=== PATIENT | male | born 1975 | race African-American/Black ===

== ENCOUNTER 2016-04-14 14:31 | Emergency (ER) | payer OTHER ==
--- NOTE | 2016-04-14 15:29 | PROVIDER DOCUMENTATION ---
HPI-General Adult - General Source: patient - History of Present Illness -Gen Adult Nature of Presenting Problems: Pt is a 40 yom who came to the ED with a cc of allergic reaction. Pt reports he changed to a new medication last week, lisinopril. Pt reports his lips started swelling this morning. Location of Pain/Injury: reports: mouth (lips) Pain Radiation: reports: no radiation Quality of Pain: reports: none Onset/Duration: reports: this morning Timing: reports: still present Context/Activities at Onset: reports: other (recent medication change) Modifying Factors: improves with: nothing Associated Symptoms: reports: denies symptoms Similar Symptoms Previously?: No Recently seen or treated by another doctor?: No <Albina John - Last Filed: 04/14/16 15:44> <Osiel Serrano I - Last Filed: 04/14/16 15:49> - General Chief Complaint: Allergic Reaction Stated Complaint: POSS REACTION TO RX Time Seen by Provider: 04/14/16 15:05 Allergies/Adverse Reactions: Patient Allergies Allergy/AdvReac Type Severity Reaction Status Date / Time fluoxetine HCl * Allergy Unknown Unknown Verified 04/14/16 15:27 [From Prozac] methylphenidate HCl * Allergy Unknown Unknown Verified 04/14/16 15:27 [From Ritalin] verapamil [Verapamil] Allergy Unknown Unknown Verified 04/14/16 15:27 Home Medications: Home Medication List Medication Instructions Recorded Confirmed Last Taken Type Amlodipine [Norvasc] 10 mg PO DAILY #0 tablet 10/02/14 04/14/16 04/14/16 Rx Quetiapine [Seroquel] 200 mg PO QHS #0 tablet 10/02/14 04/14/16 04/13/16 Rx Sertraline [Zoloft] 200 mg PO QAM #0 tablet 10/02/14 04/14/16 04/14/16 Rx Ibuprofen 800 mg PO Q6-8H PRN PRN #20 tablet 11/23/15 04/14/16 Unknown Rx Clonidine [Catapres] 0.2 mg PO BID 04/14/16 04/14/16 04/14/16 History Diphenhydramine [Benadryl] 25 mg PO Q4-6H PRN PRN #20 capsule 04/14/16 Unknown Rx Famotidine [Pepcid] 20 mg PO DAILY #20 tablet 04/14/16 Unknown Rx LISINOpril [Prinivil] 20 mg PO BID 04/14/16 04/14/16 04/14/16 08:00 History Perphenazine 16 mg PO DIRECTED 04/14/16 04/14/16 04/14/16 History Thiamine [Vitamin B-1] 100 mg PO DAILY 04/14/16 04/14/16 04/14/16 History Review of Systems - Adult - REVIEW OF SYSTEMS - ADULT Constitutional: denies: chills, fever Eyes: denies: decreased vision, double vision Ears, Nose, Mouth & Throat: reports: other (perioral edema). denies: hearing loss, sinus problem Cardiovascular: reports: no symptoms reported Respiratory: reports: no symptoms reported Gastrointestinal: reports: no symptoms reported Genitourinary: reports: no symptoms reported Musculoskeletal: reports: no symptoms reported Integumentary: reports: no symptoms reported Neurological: reports: no symptoms reported Psychiatric: reports: no symptoms reported Endocrine: reports: no symptoms reported Hematologic/Lymphatic: reports: no symptoms reported Allergic/Immunologic: reports: allergic reactions. denies: food allergy, hay fever All Other Systems: Reviewed and Negative <Albina John - Last Filed: 04/14/16 15:44> Past History - Adult - PAST MEDICAL HISTORY-ADULT Review of Records: reports: Old Records Reviewed, Nursing Assessment Review Major Childhood Illnesses: reports: history unknown Cardiovascular: reports: HTN Respiratory: reports: denies history Gastrointestinal: reports: GERD Obstetrical/Gynecological: reports: denies history Genitourinary: reports: denies history Musculoskeletal: reports: denies history Neurological: reports: Seizures/Epilepsy Psychiatric: reports: bipolar, depression, schizophrenia Endocrine/Immune: reports: denies history Other Conditions: reports: denies history - PRIOR SURGERIES/PROCEDURES Surgical/Procedure History: reports: other (dilation of penis) - PRIOR HOSPITALIZATIONS Prior Hospitalizations: reports: none - IMMUNIZATION STATUS Childhood Immunizations: UTD, See Nurse Assessment Flu Vaccine: See Nurse Assessment - FAMILY HISTORY Family History: reviewed, not pertinent <Albina John - Last Filed: 04/14/16 15:44> Physical Exam-General - PHYSICAL EXAM-ADULT Initial Vital Signs Reviewed: Yes - CONSTITUTIONAL General Appearance: appears well, alert, no apparent distress - EYES Eyes: PERRL/EOMI, pink conjunctivae, fundi clear, no AV nicking - HEAD, EARS, NOSE, MOUTH & THROAT HENMT: moist mucous membranes, other (perioral edema) - NECK Neck: non-tender - RESPIRATORY Respiratory: chest non-tender - CARDIOVASCULAR Cardiovascular: normal peripheral pulses, regular rate, rhythm, no edema, no gallop, no JVD, no murmur - GASTROINTESTINAL (ABDOMEN) Abdominal Exam: normal bowel sounds, non tender, soft - MUSCULOSKELETAL Back Exam: normal inspection Extremity: normal range of motion - SKIN Integumentary: normal color, normal turgor, warm/dry - NEUROLOGIC Neurologic: grossly normal - PSYCHIATRIC Psych/Mental Status: normal mood/affect, normal thought content, normal thought process, oriented x 3 <Albina John - Last Filed: 04/14/16 15:44> - CONSTITUTIONAL General Appearance: appears well - EYES Eyes: PERRL/EOMI - HEAD, EARS, NOSE, MOUTH & THROAT HENMT: angioedema (PATIENT HAS SEVERE ANGIOEDEMA OF THE UPPER AND LOWER LIPS. NO EVIDENCE OF TONGUE OR VOCAL CORD OR NECK EDEMA) <Osiel Serrano I - Last Filed: 04/14/16 15:49> Progress - PLAN OF CARE/RESULTS Progress/Plan/Lab Results: Vital Signs - 24 hr 04/14/16 14:36 Temperature 98.4 F Pulse Rate 100 H Respiratory 20 Rate Blood Pressure 138/105 O2 Sat by Pulse 100 Oximetry <Albina John - Last Filed: 04/14/16 15:44> Departure <Albina John - Last Filed: 04/14/16 15:44> - Departure Time of Disposition Order: 15:46 Certified Medical Emergency: Emergent <Osiel Serrano I - Last Filed: 04/14/16 15:49> - Departure DIAGNOSIS: Angioneurotic edema, initial encounter Disposition: HOME 01 Condition: Stable Prescriptions: Diphenhydramine [Benadryl] 25 mg PO Q4-6H PRN PRN #20 capsule PRN Reason: Itching Famotidine [Pepcid] 20 mg PO DAILY #20 tablet Attestation - Scribe Verification/Attestation Scribe:: Albina John Acting as Scribe for:: Osiel Serrano Scribe documention review:: This chart was documented by a scribe and accurately reflects the service the provider performed and the decisions made by the provider. <Albina John - Last Filed: 04/14/16 15:44> Physician Attestation
[2016-04-14] MEDS ORDERED: ALBUTEROL NEB INH ONE (15:42)
[2016-04-14] MEDS ORDERED: BENADRYL IM ONE (15:42)
[2016-04-14] MEDS ORDERED: DECADRON IM ONE (15:42)
[2016-04-14] MEDS ORDERED: DUONEB (A & A) ONE (16:08)
[2016-04-14 17:09] VITALS: BP 158/100
== END 2016-04-14 17:08 | disposition home or self-care (01) ==
LOC: ED 14:31
DX: T78.3XXA Angioneurotic edema, initial encounter (principal); R22.0 Localized swelling, mass and lump, head; I10 Essential (primary) hypertension; K21.9 Gastro-esophageal reflux disease without esophagitis; F32.9 Major depressive disorder, single episode, unspecified; F31.9 Bipolar disorder, unspecified; F20.9 Schizophrenia, unspecified; Z79.899 Other long term (current) drug therapy
CPT/HCPCS: 94640; J1200